=== PATIENT | male | born 1995 | race Asian ===

== ENCOUNTER 2017-02-23 15:12 | Emergency (ER) | payer MEDICAID ==
[2017-02-23 15:20] VITALS: PULSE 76; RESP 18
[2017-02-23] MEDS ORDERED: ACETAMINOPHEN 500 MG TAB PO ONE (16:18)
[2017-02-23] MEDS: IBUPROFEN 600 MG TAB PO ONE ×2 (16:20→16:23)
--- NOTE | 2017-02-23 17:15 | EDPHY ---
H & P Stated Complaint: injured low back playing volleyball last evening HPI/ROS: Chief complaint: Low back pain History of present illness: This is a 21-year-old male who presents to the emergency department for low back pain. Patient reports he was playing volleyball last night, he went up and jumped and when he landed he was leaning backwards. He landed on his heels and was unable to bend his knees to absorb at the landing. He fell on the force go up into his low back. He had pain that has progressively worsened since then. The pain is all across the low back. Worse with movement, better with rest. He denies other associated signs or symptoms including no report of trauma to or pain to other parts of the body. His feet and ankle do not her. No neurologic symptoms such as paresthesias, weakness or paralysis or bowel or bladder dysfunction. Review of systems: A 10 point review of systems was obtained and other than described above was negative - Personal History Current Tetanus/Diphtheria Vaccine: No - Medical/Surgical History Hx Asthma: No Hx Chronic Respiratory Disease: No Hx Diabetes: No Hx Cardiac Disease: No Hx Renal Disease: No Hx Cirrhosis: No Hx Alcoholism: No Hx HIV/AIDS: No Hx Splenectomy or Spleen Trauma: No Other PMH: l hip fx as child - Social History Smoking Status: Never smoked - Physical Exam Exam: General Appearance: Alert, nontoxic Eyes: PERRLA Respiratory: Lungs clear to auscultation bilaterally Cardiac: Regular rate and rhythm. Gastrointestinal: Bowel sounds normal. Abdomen is soft, nondistended, nontender. Neurological: Alert and oriented x4. Cranial nerves 2-12 grossly intact. Strength and sensation intact and symmetrical. Patellar and Achilles reflexes 2 + bilaterally. Straight leg raise test is negative bilaterally. It hurts to walk but he maintains his balance. Skin: No lesions consistent with trauma. Musculoskeletal: Head is nontender. The cervical and thoracic spine are nontender. There is diffuse tenderness over the lumbar spine and paraspinal muscles bilaterally. No specific point tenderness over the lumbar spine. No crepitus, bony deformity or step-off. He is moving all extremities well. Constitutional: Initial Vital Signs Temperature (C) 36.5 C 02/23/17 15:17 Heart Rate 76 02/23/17 15:17 Respiratory Rate 18 02/23/17 15:17 Blood Pressure 112/60 02/23/17 15:17 O2 Sat (%) 96 02/23/17 15:17 O2 Delivery Mode Room Air Allergies/Adverse Reactions: No Known Allergies Allergy (Unverified 02/23/17 15:17) Home Medications: Medication Instructions Recorded Cyclobenzaprine [Flexeril 10 MG 10 mg PO TID PRN #15 tab 02/23/17 (*)] Medical Decision Making - Diagnostics Imaging Results: Imaging Impressions Lumbar Spine X-Ray 02/23/17 17:03 Impression: 1. Scoliosis 2. Disk narrowing at L3-L4 of unknown chronicity. If there is clinical concern for acute lumbar disk herniation, then consider lumbar MRI (without contrast). Imaging: I viewed and interpreted images myself ED Course/Re-evaluation: Patient seen under the supervision of my secondary supervising physician Dr. Brennen Velasquez. Patient presents to the emergency department for low back pain after jumping and landing onto his feet poorly last night. Pain is all across the lumbar spine. He has a nonfocal neurologic exam. X-ray does not show acute fracture. Some disc space narrowing at L3-L4 which could represent an acute herniated intervertebral disc. He has no symptoms of this at this time such as radiculopathy or abnormal neurologic signs or symptoms. I believe he is appropriate for discharge home. Home care is discussed including icing the injury as well as the use of ibuprofen and Flexeril and [id number] lidocaine patches. He is asked to follow up with a primary care doctor for recheck and referral information is provided. Strict return precautions are discussed with patient. He has voiced understanding and agreement with plan. Differential Diagnosis: Included but not limited to lumbar sprain or strain, herniated intervertebral disc, bony fracture, unlikely cauda equina syndrome - Data Points Medications Given: Discontinued Medications Acetaminophen (Tylenol) 1,000 mg PO EDNOW ONE Stop: 02/23/17 16:19 Last Admin: 02/23/17 16:21 Dose: 1,000 mg Ibuprofen (Motrin) 600 mg PO EDNOW ONE Stop: 02/23/17 16:19 Last Admin: 02/23/17 16:23 Dose: 600 mg Departure - Departure Disposition: Home, Routine, Self-Care Clinical Impression: Low back pain Qualifiers: Chronicity: acute Back pain laterality: bilateral Sciatica presence: without sciatica Qualified Code(s): M54.5 - Low back pain Condition: Good Instructions: Acute Low Back Pain (ED) Additional Instructions: Follow-up with the primary care doctor for recheck You may have a herniated intervertebral disc, please discuss this with a primary care doctor Ice the injury, 20 min on, 3 times daily for the next 2 days Use ibuprofen 600 mg 3 times a day for the next 2-3 days for pain control You can also use the Flexeril for symptom control. Please noted is sedating. You can also consider using [id number]-fihttna lidocaine patches on your low back that can be purchased at any local pharmacy If symptoms worsen or new symptoms develop including increasing pain, new pain, numbness or tingling, difficulty controlling her bowel or bladder, inability to walk or other signs or symptoms return to the emergency room Referrals: NONE *PRIMARY CARE P,. [Primary Care Provider] - As per Instructions Laurita Loyola MD [Medical Doctor] - As per Instructions Stand Alone Forms: School Excuse Prescriptions: Cyclobenzaprine [Flexeril 10 MG (*)] 10 mg PO TID PRN #15 tab PRN Reason: Spasms
[2017-02-23 17:54] VITALS: BP 122/54; TEMP 98.2; O2SAT 98
== END 2017-02-23 18:03 | disposition home or self-care (01) ==
DX: S39.92XA Unspecified injury of lower back, initial encounter (principal); W18.39XA Other fall on same level, initial encounter; Y99.8 Other external cause status; Y93.68 Activity, volleyball (beach) (court)

== ENCOUNTER 2018-03-09 16:55 | Emergency (ER) | payer MEDICAID ==
--- NOTE | 2018-03-09 17:58 | EDPHY ---
H & P Stated Complaint: R sided neck sore today;alleviated w/massage;no injury - Personal History Current Tetanus Diphtheria and Acellular Pertussis (TDAP): Yes - Medical/Surgical History Hx Asthma: No Hx Chronic Respiratory Disease: No Hx Diabetes: No Hx Cardiac Disease: No Hx Renal Disease: No Hx Cirrhosis: No Hx Alcoholism: No Hx HIV/AIDS: No Hx Splenectomy or Spleen Trauma: No Other PMH: L hip fx as child - Social History Smoking Status: Never smoked Time Seen by Provider: 03/09/18 17:42 HPI/ROS: Chief complaint: Neck soreness History of present illness: This is a 23-year-old male who presents to the emergency department for evaluation of neck soreness. He states both sides of the neck are sore. The soreness radiates up to the back of the head. He is wondering if this is secondary to the fact that he abruptly stopped drinking caffeinated coffee and using ecigarettes 2 days ago as he wants to quit these. He went cold turkey. He denies other associated signs or symptoms including no headache, no pain in the rest of the back, no paresthesias, no weakness or paralysis, no bowel or bladder dysfunction, no history of fevers or cold symptoms, no history of trauma. (Lakhwinder Rios) - Physical Exam Exam: General Appearance: Alert and no distress. Eyes: Pupils equal and round no injection. ENT: Tympanic membranes, external auditory canals, external ears and surrounding soft tissue including over the mastoids are unremarkable. Nasopharynx is not injected. There is no rhinorrhea. Oropharynx is not injected. There is no edema. There is no exudate. There is no asymmetry. The uvula is midline. No elevation of the tongue. There is no hoarseness, no drooling, no trismus, no stridor. Respiratory: Chest is non tender, lungs are clear to auscultation. Cardiac: Regular rate and rhythm. Radial pulses 2+ bilaterally. Musculoskeletal: The spine is nontender to palpation along its entire length, there is no crepitus, bony deformity or step-off. There is mild tenderness to the trapezius muscles bilaterally. Extremities have full range of motion and are non tender. Skin: No rashes or lesions. Neurological: Alert and oriented x4. Cranial nerves 2-12 grossly intact. Strength and sensation intact and symmetrical. Upper extremity reflexes brisk and symmetrical. (Lakhwinder Rios) Constitutional: Initial Vital Signs Temperature (C) 36.5 C 03/09/18 16:57 Heart Rate 70 03/09/18 16:57 Respiratory Rate 16 03/09/18 16:57 Blood Pressure 123/56 H 03/09/18 16:57 O2 Sat (%) 98 03/09/18 16:57 O2 Delivery Mode Room Air Allergies/Adverse Reactions: No Known Allergies Allergy (Verified 03/09/18 16:56) Home Medications: Medication Instructions Recorded Cyclobenzaprine [Flexeril 10 MG 10 mg PO TID PRN #15 tab 03/09/18 (*)] Medical Decision Making ED Course/Re-evaluation: Patient seen under the supervision of my secondary supervising physician Dr. Chato Costa. Patient presents with neck tightness. I suspect a muscle spasms. Possibly exacerbated by rapid cessation of caffeine and nicotine intake. Patient is nontoxic. Physical exam does reveal reproducible tenderness over the trapezius. He has a nonfocal neurologic exam. I do not believe further evaluation including imaging studies are warranted. I discussed symptomatic care with the patient. He is to follow up with the primary care doctor for recheck. Strict return precautions are given. The patient voiced understanding and agreement with plan. (Lakhwinder Rios) I did not see this patient while he was in the emergency department. However his care was discussed with the PA while the patient was in the department. I agree with treatment plan and management (Chato Costa) Differential Diagnosis: Included but not limited to muscle spasms, caffeine or nicotine withdrawal, I doubt central nervous system involvement or bony injury (Lakhwinder Rios) Departure - Departure Disposition: Home, Routine, Self-Care Clinical Impression: Muscle spasms of neck Condition: Good Instructions: Muscle Spasm (ED) Additional Instructions: Follow-up with a primary care doctor this week for recheck Use ibuprofen 600 mg 3 times a day for the next 2-3 days If symptoms worsen or new symptoms develop return to the emergency department for recheck Referrals: NONE *PRIMARY CARE P,. [Primary Care Provider] - As per Instructions [facility],. [Clinic] - As per Instructions Prescriptions: Cyclobenzaprine [Flexeril 10 MG (*)] 10 mg PO TID PRN #15 tab PRN Reason: Spasms
[2018-03-09 18:19] VITALS: BP 122/71
== END 2018-03-09 18:18 | disposition home or self-care (01) ==
DX: M62.838 Other muscle spasm (principal)